=== PATIENT | male | born 1965 | race Native Hawaiian/Other Pacific Islander ===

== ENCOUNTER 2020-08-25 14:36 | Emergency (ER) | payer OTHER ==
[~2020-08-25] VITALS: Ht 152.4 cm; Wt 59.0 kg
[2020-08-25 14:36] VITALS: BP 145/81; TEMP 97.7
[2020-08-25 15:39] LABS: PLATELET COUNT 199 K/uL (142-355)
[2020-08-25 15:54] LABS: POTASSIUM 3.8 mmol/L (3.6-5.2)
== END 2020-08-25 16:40 | disposition other institution (70) ==
LOC: ED 14:58
PROVIDERS: Emergency Medicine
DX: R45.1 Restlessness and agitation (principal); Z87.820 Personal history of traumatic brain injury; Z11.52 Encounter for screening for COVID-19; Z04.6 Encounter for general psychiatric examination, requested by authority
CPT/HCPCS: 80053; 85027; 87635; 93005; 99283; U0003